=== PATIENT | female | born 1985 | race Two or more races ===

== ENCOUNTER 2021-06-11 20:20 | Emergency (ER) | payer MEDICAID, OTHER ==
[~2021-06-11] VITALS: Ht 162.6 cm; Wt 65.8 kg
[2021-06-11 20:28] VITALS: BP 146/77
== END 2021-06-12 02:38 | disposition left against medical advice (07) ==
LOC: ER 20:27 → EDBD 20:27 → ER 06-12 02:38
DX: R07.89 Other chest pain (principal); Z53.21 Procedure and treatment not carried out due to patient leaving prior to being seen by health care provider
CPT/HCPCS: 93005

== ENCOUNTER 2023-10-04 02:29 | Emergency (ER) | payer MEDICAID, OTHER ==
[~2023-10-04] VITALS: Ht 162.6 cm; Wt 68.6 kg
[2023-10-04 02:29] VITALS: BP 127/80; RESP 16; O2SAT 100
[2023-10-04 02:42] VITALS: PULSE 82
== END 2023-10-04 03:44 | disposition home or self-care (01) ==
LOC: ER 02:29
DX: R07.2 Precordial pain (principal); F41.9 Anxiety disorder, unspecified
CPT/HCPCS: 36415; 71045; 84484; 85379; 93005